=== PATIENT | male | born 1980 | race African-American/Black ===

== ENCOUNTER 2017-03-05 08:00 | Emergency (ER) | payer OTHER ==
[~2017-03-05] VITALS: Ht 170.2 cm; Wt 68.0 kg
[2017-03-05 08:05] VITALS: BP 131/89
[2017-03-05] MEDS ORDERED: NORCO 5-325 TA1 EACH PO (08:59)
== END 2017-03-05 09:09 | disposition home or self-care (01) ==
LOC: ER 08:00
DX: S46.912A Strain of unspecified muscle, fascia and tendon at shoulder and upper arm level, left arm, initial encounter (principal); W10.9XXA Fall (on) (from) unspecified stairs and steps, initial encounter; Y93.89 Activity, other specified; Y92.89 Other specified places as the place of occurrence of the external cause; Y99.9 Unspecified external cause status